=== PATIENT | male | born 1955 | race Caucasian/White ===

== ENCOUNTER 2017-08-02 08:25 | Emergency (ER) | payer OTHER ==
[~2017-08-02] VITALS: Ht 180.3 cm; Wt 71.7 kg
[2017-08-02 08:27] VITALS: BP 191/101; PULSE 84; RESP 18; TEMP 97.6; O2SAT 99
[2017-08-02] MEDS ORDERED: FLUT1SPR5 EACH NARE (08:41)
[2017-08-02 08:53] VITALS: BP 160/97; PULSE 72; RESP 16; O2SAT 99
--- NOTE | 2017-08-02 08:54 | PD ---
HPI Chief Complaint: GI Complaint Time Seen by Provider: 08:48 Travel History International Travel<30 days: No Contact w/Intl Traveler<30days: No Traveled to known affect area: No History of Present Illness HPI Patient presents with complaints of foreign body sensation when he swallows. No difficulty with liquids or solids. Complaints of chills without fever. Additionally complains of cervical neck pain, usually worse in the morning when he awakes. Denies any trauma misstep or fall. Denies any nausea vomiting or diarrhea. No new rashes. Denies chest pain shortness of breath urinary or bowel symptoms. PFSH Past Medical History Kidney Stones: Yes Past Surgical History Tonsillectomy: Yes Other Surgery: Yes (hernia repair, tumor removed from finger, kidney stones removed) Social History Alcohol Use: Yes (1 beer per day) Tobacco Use: No Substance Use: No Allergies-Medications (Allergen,Severity, Reaction): Coded Allergies: Penicillins (Verified Allergy, Intermediate, RASH, 08/02/17) Reported Meds & Prescriptions Reported Meds & Active Scripts Active Reported Flonase Nasal [place] (Fluticasone Nasal [place]) 50 Mcg/Act [place] 50 Mcg EACH NARE BID Review of Systems General / Constitutional: Positive: Chills, No: Fever Eyes: No: Visual changes HENT: Positive: Sore Throat, No: Headaches Cardiovascular: No: Chest Pain or Discomfort Respiratory: No: Shortness of Breath Gastrointestinal: No: Abdominal Pain Genitourinary: No: Dysuria Musculoskeletal: Positive: Myalgias, Pain Skin: No Rash Neurologic: No: Weakness Psychiatric: No: Depression Endocrine: No: Polydipsia Hematologic/Lymphatic: No: Easy Bruising Physical Exam Narrative GENERAL: Well-nourished, well-developed patient. SKIN: Focused skin assessment warm/dry. HEAD: Normocephalic. Examination of cervical spine reveals no midline tenderness bilateral paraspinous pain good range of motion Examination of the throat reveals no adenopathy no exudate no erythema mild postnasal drip EYES: No scleral icterus. No injection or drainage. NECK: Supple, trachea midline. No JVD or lymphadenopathy. CARDIOVASCULAR: Regular rate and rhythm without murmurs, gallops, or rubs. RESPIRATORY: Breath sounds equal bilaterally. No accessory muscle use. GASTROINTESTINAL: Abdomen soft, non-tender, nondistended. MUSCULOSKELETAL: No cyanosis, or edema. BACK: Nontender without obvious deformity. No CVA tenderness. Data Data Last Documented VS Vital Signs Date Time Temp Pulse Resp B/P (MAP) Pulse Ox O2 Delivery O2 Flow Rate FiO2 08/02/17 08:27 97.6 84 18 191/101 (131) 99 Orders Orders Clonidine (Catapres) (08/02/17 09:00) MDM Medical Decision Making Medical Screen Exam Complete: Yes Emergency Medical Condition: Yes Differential Diagnosis Pharyngitis, GERD, uncontrolled hypertension, cervical degenerative disc disease Narrative Course Assessment and plan discussed with patient and at bedside. Diagnosis Primary Impression: Degenerative disc disease, cervical Additional Impressions: Elevated blood pressure reading Dysphagia Qualified Codes: R13.10 - Dysphagia, unspecified Patient Instructions: General Instructions Additional Instructions: Encourage nonsteroidal anti-inflammatories warm heat gentle stretching and strengthening and massage for cervical degenerative disc disease. Encourage vitamin C and zinc to boost immune system, encouraged salt water gargles. Encouraged rest fluids and Tylenol. Encouraged to avoid aggravating factors of reflux including but not limited to alcohol tobacco late large meals spicy meals and weight. Follow-up with PCP for further evaluation of cold intolerance. Encouraged regular exercise and avoidance of salt for blood pressure. Encouraged a blood pressure log for evaluation with PCP. Return to emergency room with any onset of new symptoms. Med/Other Pt SpecificInfo: No Meds Exist/No RX given Disposition: 01 DISCHARGE HOME Condition: Good Juan Lang MD Aug 02, 2017 08:54
[2017-08-02] MEDS ORDERED: cloNIDine HCL 0.1 MG TAB PO ONE (09:00)
== END 2017-08-02 09:23 | disposition home or self-care (01) ==
LOC: PHED 08:25
DX: M50.30 Other cervical disc degeneration, unspecified cervical region (principal); R03.0 Elevated blood-pressure reading, without diagnosis of hypertension; R13.10 Dysphagia, unspecified
CPT/HCPCS: 99283

== ENCOUNTER 2017-08-17 23:26 | Emergency (ER) | payer OTHER ==
[2017-08-18 03:29] LABS: AUTOMATED NEUTROPHIL # 5.4 TH/MM3 (1.8-7.7); BASOPHIL % 0.6 % (0.0-2.0); BILIRUBIN, URINE NEG (NEG); BLOOD, URINE NEG (NEG); EOSINOPHIL # 0.1 TH/MM3 (0-0.4); EOSINOPHIL % 1.4 % (0.0-4.0); GLUCOSE,URINE NEG (NEG); HEMATOCRIT 48.7 % (39.0-51.0); HEMO FLAGS DIFF FINAL; HEMOGLOBIN 16.2 GM/DL (13.0-17.0); KETONE, URINE 15 mg/dL (NEG); LYMPH % 23.9 % (9.0-44.0); LYMPHOCYTE # 1.9 TH/MM3 (1.0-4.8); MEAN CELL VOLUME 92.9 FL (80.0-100.0); MEAN CORPUSCULAR HEMOGLOBIN 30.9 PG (27.0-34.0); MEAN CORPUSCULAR HGB CONC 33.3 % (32.0-36.0); MEAN PLATELET VOLUME 7.9 FL (7.0-11.0); MONO % 5.3 % (0.0-8.0); MONOCYTE # 0.4 TH/MM3 (0-0.9); NEUT % 68.8 % (16.0-70.0); NITRITE,URINE NEG (NEG); PH, URINE 6.5 (5.0-8.5); PLATELET COUNT 319 TH/MM3 (150-450); RED BLOOD COUNT 5.24 MIL/MM3 (4.50-5.90); RED CELL DISTRIBUTION WIDTH 12.3 % (11.6-17.2); URINE LEUKOCYTE ESTERASE NEG (NEG); WHITE BLOOD COUNT 7.8 TH/MM3 (4.0-11.0)
[2017-08-18 03:33] LABS: URINE COLOR YELLOW (YELLW/STRAW)
[2017-08-18 03:35] LABS: CHLORIDE 103 MEQ/L (98-107); POTASSIUM 4.1 MEQ/L (3.5-5.1); SODIUM (NA) 139 MEQ/L (136-145); SQUAMOUS EPITHELIAL CELL URINE 0-5 /hpf (0-5)
[2017-08-18 03:36] LABS: COMMENT (UR) CULT NOT INDICATED; CULTURE IF INDICATED CULT NOT INDICATED
[2017-08-18 03:38] LABS: CALCIUM 9.1 MG/DL (8.5-10.1)
[2017-08-18 03:39] LABS: ALBUMIN 4.1 GM/DL (3.4-5.0); ANION GAP 6 MEQ/L (5-15); BLOOD UREA NITROGEN 16 MG/DL (7-18); GLUCOSE,RANDOM 102 MG/DL (74-106)
[2017-08-18 03:42] LABS: ALT (GPT) 36 U/L (12-78); AST (GOT) 20 U/L (15-37); GLOMERULAR FILTRATION RATE 68 ML/MIN (>89)
[2017-08-18 03:43] LABS: TOTAL BILIRUBIN ADULT 0.7 MG/DL (0.2-1.0)
[2017-08-18 03:44] LABS: TOTAL PROTEIN 8.1 GM/DL (6.4-8.2)
[2017-08-18 03:45] LABS: ALKALINE PHOSPHATASE 102 U/L (45-117)
[2017-08-18] MEDS: IOHEXOL 350 MG/ML 10 ML VIAL (for RAD DIAG) IVCONTRAST (04:21)
== END 2017-08-18 05:53 | disposition home or self-care (01) ==
LOC: PHED 23:26
DX: Z03.89 Encounter for observation for other suspected diseases and conditions ruled out (principal); E04.1 Nontoxic single thyroid nodule
CPT/HCPCS: 70491; 80053; 81001; 85025; 99284